=== PATIENT | male | born 1995 | race African-American/Black ===

== ENCOUNTER 2017-01-09 22:39 | Emergency (ER) | payer OTHER ==
[~2017-01-09] VITALS: Ht 177.8 cm; Wt 57.0 kg
[2017-01-10] MEDS ORDERED: LORAZEPAM 1MG TABLET PO ONE (01:15)
[2017-01-10 02:09] VITALS: BP 126/78
== END 2017-01-10 02:12 | disposition home or self-care (01) ==
LOC: ER 22:39
DX: F41.9 Anxiety disorder, unspecified (principal); F20.9 Schizophrenia, unspecified; F12.10 Cannabis abuse, uncomplicated
CPT/HCPCS: 99284

== ENCOUNTER 2019-07-06 12:08 | Emergency (ER) | payer MEDICAID, OTHER ==
[~2019-07-06] VITALS: Ht 172.7 cm; Wt 85.0 kg
== END 2019-07-06 14:00 | disposition left against medical advice (07) ==
LOC: ER 12:08
DX: Z00.8 Encounter for other general examination (principal); F20.9 Schizophrenia, unspecified; F41.9 Anxiety disorder, unspecified; F12.10 Cannabis abuse, uncomplicated; Z59.0 Homelessness
CPT/HCPCS: 99283

== ENCOUNTER 2019-08-23 12:02 | Emergency (ER) | payer MEDICAID ==
[~2019-08-23] VITALS: Ht 177.8 cm; Wt 180.0 kg
[2019-08-23] MEDS ORDERED: LORAZEPAM 1MG TABLET PO ONE (22:00)
[2019-08-23 23:25] LABS: *AMPHETAMINES SCREEN URINE NEGATIVE (NEGATIVE); *BARBITURATES SCREEN URINE NEGATIVE (NEGATIVE); *BENZODIAZEPINES SCREEN URINE NEGATIVE (NEGATIVE); *COCAINE SCREEN URINE NEGATIVE (NEGATIVE); CANNABINOID URINE SCREEN PRESUMTIVE POSITIVE (NEGATIVE); METHADONE URINE SCREEN NEGATIVE (NEGATIVE); OPIATES URINE SCREEN NEGATIVE (NEGATIVE)
[2019-08-23 23:27] LABS: PHENCYCLIDINE URINE SCREEN NEGATIVE (NEGATIVE)
[2019-08-24 00:11] LABS: BASOPHILS % 0.9 % (0.0-2.0); EOSINOPHILS % 2.4 % (0.0-5.0); HEMOGLOBIN. 14.8 g/dL (14.0-18.0); LYMPHOCYTES % 31.4 % (20.0-50.0); MEAN CORPUSCULAR HEMOGLOBIN 26.9 pg (28.0-32.0); MEAN CORPUSCULAR VOLUME 83.4 fL (80.0-94.0); NEUTROPHILS % 56.3 % (40.0-76.0); PLATELET 254 x1000/uL (130-400); RED BLOOD CELL COUNT 5.51 mill/uL (4.7-6.1); RED CELL DISTRIBUTION WIDTH 12.3 % (11.6-14.6)
[2019-08-24 00:18] LABS: CHLORIDE 104 mEq/L (98-107)
[2019-08-24 00:22] LABS: ETHANOL BLOOD < 10 mg/dL
[2019-08-25 11:42] VITALS: BP 110/76
== END 2019-08-25 11:44 | disposition home or self-care (01) ==
LOC: ER 14:09
DX: F23 Brief psychotic disorder (principal); G93.49 Other encephalopathy; Z59.0 Homelessness
CPT/HCPCS: 36415; 80053; 80305; 80307; 80320; 80329; 84443; 85025; 93005; 99284; Z7610; G0480